=== PATIENT | male | born 1975 | race Caucasian/White ===

== ENCOUNTER 2018-09-05 11:56 | Emergency (ER) | payer SELFPAY ==
[~2018-09-05] VITALS: Ht 172.7 cm; Wt 70.5 kg
[2018-09-05] MEDS ORDERED: IBUPROFEN 600 MG TABLET PO ONE (13:00)
[2018-09-05 13:15] VITALS: BP 121/78
== END 2018-09-05 13:35 | disposition home or self-care (01) ==
LOC: EMS 11:56
DX: S13.4XXA Sprain of ligaments of cervical spine, initial encounter (principal); S00.431A Contusion of right ear, initial encounter; V49.40XA Driver injured in collision with unspecified motor vehicles in traffic accident, initial encounter; Y93.89 Activity, other specified; Y92.89 Other specified places as the place of occurrence of the external cause; Y99.8 Other external cause status